=== PATIENT | male | born 1960 | race Caucasian/White ===

== ENCOUNTER → 2018-03-20 | Outpatient (CLI) | payer OTHER, BC ==
[~2018-03-20] MED LIST: AMLO2.5T PO; ASPEC81 PO
--- NOTE | 2018-03-20 07:52 | DIAGNOSTIC IMAGING REPORT ---
BRAIN WITHOUT CONTRAST HISTORY: 57 years-old Male POST CONCUSSION chronic head pain with headaches, blurry vision and anxiety. History of postconcussion syndrome COMPARISON: None available TECHNIQUE: Multiplanar multisequence MRI of the brain was obtained without use of IV contrast. FINDINGS: Undergraduate Intern localizer images demonstrate no gross abnormality. There is no restricted diffusion to suggest acute or subacute infarction. Midline structures including the corpus callosum, brainstem, optic chiasm, pituitary and pineal glands appear unremarkable on the sagittal T1 series. There is no cerebellar tonsillar herniation. Degenerative changes of the imaged cervical spine. No pathologic blooming artifact on the T2 star series. No acute intracranial hemorrhage, midline shift, abnormal extra-axial collections, hydrocephalus or intracranial mass. Suggested prominent perivascular space about the inferior left lentiform nucleus measures 4 mm on image 12 series 6. Mild degree of scattered T2/FLAIR hyperintensities are seen within the subcortical and periventricular white matter. The major flow voids appear patent. The orbits, skull and soft tissues are within normal limits. Mastoid air cells are clear. Minimal mucosal thickening of the ethmoid air cells. IMPRESSION: 1. No acute intracranial abnormality. 2. Mild degree of scattered T2/FLAIR hyperintensities within the subcortical and periventricular white matter suggest probable mild chronic microvascular ischemic changes. The above report was generated using voice recognition software. It may contain grammatical, syntax or spelling errors. Electronically signed by: Lorenzo Forbes M.D. 03/20/2018 7:51 AM Dictated Date/Time: 03/20/2018 7:46 AM
== END | disposition home or self-care (01) ==
LOC: C.MRIBC 07:05
PROVIDERS: ATTEND Physical Medicine & Rehabilitation
DX: F07.81 Postconcussional syndrome (principal)